=== PATIENT | male | born 1990 ===

== ENCOUNTER 2018-08-10 19:55 | Emergency (ER) | payer SELFPAY ==
[2018-08-10] MEDS ORDERED: Sodium Chloride 0.9% 10 ML Syringe FLUSH PRN (20:13)
[2018-08-10] MEDS ORDERED: Sodium Chloride 0.9% 2.5 ML Syringe FLUSH PRN (20:13)
[2018-08-10] MEDS ORDERED: methylPREDNISolone Sodium Succinate 125 MG/2 ML SDV IVPUSH ONE (20:13)
[2018-08-10] MEDS ORDERED: Sodium Chloride 0.9% 1,000 ML IV ONE (20:13)
[2018-08-10] MEDS ORDERED: Albuterol/Ipratropium 3.0-0.5 MG/3 ML Neb Soln NEB ONE ×2 (20:13→21:23)
[2018-08-10] MEDS ORDERED: Ketorolac 30 MG/ML SDV IVPUSH ONE (20:13)
--- NOTE | 2018-08-10 20:17 | EDM.PDOC ---
ED HPI GENERAL MEDICAL PROBLEM - General Chief Complaint: Respiratory Problem Stated Complaint: CHEST PAINS Time Seen by Provider: 08/10/18 20:09 - History of Present Illness INITIAL COMMENTS - FREE TEXT/NARRATIVE: HISTORY AND PHYSICAL: History of present illness: The patient is a 27-year-old male with no significant pulmonary or cardiac disease and no ill contacts who presents with 2 days of cough and congestion and feeling like there is phlegm that he cannot get out along with wheezing and feeling short of breath and fevers up to 101 last evening. He has been taking Motrin 400 mg for his fever and he has been feeling hot and cold on and off as well as having a sore throat, only when he is coughing. He is pushing hydration and not having abdominal pain vomiting but he has had some diarrhea. The patient did not get his flu shot but does work outdoors and has no history of seasonal allergies. Review of systems: As per history of present illness and below otherwise all systems reviewed and negative. Past medical history: As per history of present illness and as reviewed below otherwise noncontributory. Surgical history: As per history of present illness and as reviewed below otherwise noncontributory. Social history: No reported history of drug or alcohol abuse. Family history: As per history of present illness and as reviewed below otherwise noncontributory. Physical exam: General: Well-developed well-nourished overweight man who is nontoxic and speaking clearly without breathlessness but seems a little anxious. He does have a loose spastic cough on my evaluation HEENT: Atraumatic, normocephalic, pupils reactive, negative for conjunctival pallor or scleral icterus, mucous membranes moist, throat clear of exudates but there is some erythema, there is no cervical adenopathy or nuchal rigidity, neck supple, nontender, trachea midline. Lungs: Inspiratory and expiratory wheezing throughout all lung [place] with reasonably good air exchange and only diminished at the bases breath sounds equal bilaterally, chest nontender. Heart: S1S2, regular rhythm and slightly tachycardic on my evaluation but no overt murmurs Abdomen: Soft, nondistended, nontender. Hypoactive bowel sounds Negative for costovertebral tenderness. Pelvis: Deferred Genitourinary: Deferred. Rectal: Deferred. Extremities: Atraumatic Neurovascular unremarkable. No pedal edema Neuro: Awake, alert, oriented. Cranial nerves II through XII unremarkable. Cerebellum unremarkable. Motor and sensory unremarkable throughout. Exam nonfocal. Diagnostics: CBC CMP lactic acid influenza chest x-ray Therapeutics: IV fluids duo neb Solu-Medrol Toradol 2119: Reevaluation the patient is moving air well but is still wheezing and having coarse breath sounds. We are currently awaiting his chest x-ray or disposition. 2215: Reevaluation the patient says he is feeling much better and still coughing though but he is still having rhonchi and wheezing bilaterally but much improved from initial presentation. As he was not hypoxic on arrival and he is improving I have discussed with him his x-ray and lab findings and have offered him disposition home or observation admission. At this point she does not want to be admitted to the hospital and would like a trial of outpatient care. I will give him a spacer a Ventolin inhaler prednisone a Z-Eyad and some cough medication to take for sleep. He is aware of my concerns and will return if there is no improvement Impression: Acute bronchitis with bronchospasm Definitive disposition and diagnosis as appropriate pending reevaluation and review of above. chest/lungs Pain Score (Numeric/FACES): 7 - Related Data Allergies Allergy/AdvReac Type Severity Reaction Status Date / Time sulfamethoxazole Allergy Rash Verified 08/10/18 20:04 [From Bactrim] trimethoprim [From Bactrim] Allergy Rash Verified 08/10/18 20:04 Home Meds: Home Meds . [No Known Home Meds] 08/10/18 [History] Past Medical History - Past Health History Medical/Surgical History: Denies Medical/Surgical History Social & Family History - Family History Oncologic: Reports: Leukemia - Tobacco Use Smoking Status *Q: Heavy Tobacco Smoker Years of Tobacco use: 6 Packs/Tins Daily: 0.5 - Recreational Drug Use Recreational Drug Use: No ED ROS GENERAL - Review of Systems Review Of Systems: ROS reveals no pertinent complaints other than HPI. ED EXAM, GENERAL - Physical Exam Exam: See Below (See dictation) Course - Vital Signs Last Recorded V/S: Last Vital Signs Temp 37.1 C 08/10/18 20:02 Pulse 101 H 08/10/18 20:02 Resp 22 H 08/10/18 20:02 BP 142/75 H 08/10/18 20:02 Pulse Ox 94 L 08/10/18 20:02 - Orders/Labs/Meds Orders: Active Orders 24 hr Category Date Time Status Communication Order [RC] STAT Care 08/10/18 22:19 Ordered Oxygen Therapy, ED [RC] ASDIRECTED Care 08/10/18 20:13 Active RT Aerosol Therapy [RC] ASDIRECTED Care 08/10/18 20:14 Active RT Aerosol Therapy [RC] ASDIRECTED Care 08/10/18 21:23 Active Sodium Chloride 0.9% [Saline Flush] Med 08/10/18 20:13 Active 10 ml FLUSH ASDIRECTED PRN Sodium Chloride 0.9% [Saline Flush] Med 08/10/18 20:13 Active 2.5 ml FLUSH ASDIRECTED PRN Saline Lock Insert [OM.PC] Stat Oth 08/10/18 20:13 Ordered Medication Orders Sodium Chloride (Saline Flush) 10 ml FLUSH ASDIRECTED PRN PRN Reason: Keep Vein Open Sodium Chloride (Saline Flush) 2.5 ml FLUSH ASDIRECTED PRN PRN Reason: Keep Vein Open Labs: Laboratory Tests 08/10/18 08/10/18 08/10/18 Range/Units 20:20 20:20 20:20 WBC 13.30 H (4.0-11.0) K/uL RBC 5.07 (4.50-5.90) M/uL Hgb 16.0 (13.0-17.0) g/dL Hct 45.5 (38.0-50.0) % MCV 89.7 (80.0-98.0) fL MCH 31.6 (27.0-32.0) pg MCHC 35.2 (31.0-37.0) g/dL RDW Std Deviation 42.2 (28.0-62.0) fl RDW Coeff of [place] 13 (11.0-15.0) % Plt Count 147 L (150-400) K/uL MPV 12.30 H (7.40-12.00) fL Neut % (Auto) 71.2 (48.0-80.0) % Lymph % (Auto) 17.9 (16.0-40.0) % Robertson % (Auto) 5.7 (0.0-15.0) % Eos % (Auto) 5.0 (0.0-7.0) % Baso % (Auto) 0.2 (0.0-1.5) % Neut # (Auto) 9.5 H (1.4-5.7) K/uL Lymph # (Auto) 2.4 (0.6-2.4) K/uL Robertson # (Auto) 0.8 (0.0-0.8) K/uL Eos # (Auto) 0.7 (0.0-0.7) K/uL Baso # (Auto) 0.0 (0.0-0.1) K/uL Nucleated RBC % 0.0 /100WBC Nucleated RBCs # 0 K/uL Lactate 1.1 (0.20-2.00) mmol/L Sodium 138 (136-148) mmol/L Potassium 4.1 (3.5-5.1) mmol/L Chloride 104 (98-107) mmol/L Carbon Dioxide 24.1 (21.0-32.0) mmol/L BUN 19 H (7.0-18.0) mg/dL Creatinine 1.2 (0.8-1.3) mg/dL Est Cr Clr Drug Dosing 87.98 mL/min Estimated GFR (MDRD) > 60.0 ml/min Glucose 88 (74-106) mg/dL Calcium 9.0 (8.5-10.1) mg/dL Total Bilirubin 0.5 (0.2-1.0) mg/dL AST 19 (15-37) IU/L ALT 35 (14-63) IU/L Alkaline Phosphatase 102 (46-116) U/L Total Protein 7.3 (6.4-8.2) g/dL Albumin 3.9 (3.4-5.0) g/dL Globulin 3.4 (2.6-4.0) g/dL Albumin/Globulin Ratio 1.1 (0.9-1.6) Meds: Medications Generic Name Dose Route Start Last Admin Trade Name Freq PRN Reason Stop Dose Admin Sodium Chloride 10 ml 08/10/18 20:13 Saline Flush FLUSH ASDIRECTED PRN Keep Vein Open Sodium Chloride 2.5 ml 08/10/18 20:13 Saline Flush FLUSH ASDIRECTED PRN Keep Vein Open Discontinued Medications Generic Name Dose Route Start Last Admin Trade Name Freq PRN Reason Stop Dose Admin Albuterol/Ipratropium 3 ml 08/10/18 20:13 08/10/18 20:18 Duoneb 3.0-0.5 Mg/3 Ml NEB 08/10/18 20:14 3 ml ONETIME ONE Administration Albuterol/Ipratropium 3 ml 08/10/18 21:23 08/10/18 21:50 Duoneb 3.0-0.5 Mg/3 Ml NEB 08/10/18 21:24 3 ml ONETIME ONE Administration Sodium Chloride 1,000 mls @ 999 mls/hr 08/10/18 20:13 08/10/18 20:28 Normal Saline IV 08/10/18 21:13 999 mls/hr STAT ONE Administration Ketorolac Tromethamine 30 mg 08/10/18 20:13 08/10/18 20:28 Toradol IVPUSH 08/10/18 20:14 30 mg ONETIME ONE Administration Methylprednisolone Sodium Succinate 125 mg 08/10/18 20:13 08/10/18 20:28 Solu-Medrol IVPUSH 08/10/18 20:14 125 mg ONETIME ONE Administration Departure - Departure Time of Disposition: 22:20 Disposition: Home, Self-Care 01 Condition: Good Clinical Impression: Acute bronchitis with bronchospasm - Discharge Information Referrals: PCP,None [Primary Care Provider] - Forms: ED Department Discharge Additional Instructions: The following information is given to patients seen in the emergency department who are being discharged to home. This information is to outline your options for follow-up care. We provide all patients seen in our emergency department with a follow-up referral. The need for follow-up, as well as the timing and circumstances, are variable depending upon the specifics of your emergency department visit. If you don't have a primary care physician on staff, we will provide you with a referral. We always advise you to contact your personal physician following an emergency department visit to inform them of the circumstance of the visit and for follow-up with them and/or the need for any referrals to a consulting specialist. The emergency department will also refer you to a specialist when appropriate. This referral assures that you have the opportunity for followup care with a specialist. All of these measure are taken in an effort to provide you with optimal care, which includes your followup. Under all circumstances we always encourage you to contact your private physician who remains a resource for coordinating your care. When calling for followup care, please make the office aware that this follow-up is from your recent emergency room visit. If for any reason you are refused follow-up, please contact the [facility] emergency department at and ask to speak to the emergency department charge nurse. [facility] Primary care- Internal Medicine and Family [address] [address] Please push hydration and use all medications as prescribed. He'll be given a spacer to use with your Ventolin inhaler, you've been given prednisone cough medicine and a Z-Eyad from [employer]. Please rest and call and schedule a follow -up appointment with your provider or one of ours in the next few days for reevaluation and further care. Return to ER as needed and as discussed - My Orders Last 24 Hours: My Active Orders 08/10/18 20:13 Oxygen Therapy, ED [RC] ASDIRECTED Sodium Chloride 0.9% [Saline Flush] 10 ml FLUSH ASDIRECTED PRN Sodium Chloride 0.9% [Saline Flush] 2.5 ml FLUSH ASDIRECTED PRN Saline Lock Insert [OM.PC] Stat 08/10/18 20:14 RT Aerosol Therapy [RC] ASDIRECTED 08/10/18 21:23 RT Aerosol Therapy [RC] ASDIRECTED 08/10/18 22:19 Communication Order [RC] STAT - Assessment/Plan Last 24 Hours: My Active Orders 08/10/18 20:13 Oxygen Therapy, ED [RC] ASDIRECTED Sodium Chloride 0.9% [Saline Flush] 10 ml FLUSH ASDIRECTED PRN Sodium Chloride 0.9% [Saline Flush] 2.5 ml FLUSH ASDIRECTED PRN Saline Lock Insert [OM.PC] Stat 08/10/18 20:14 RT Aerosol Therapy [RC] ASDIRECTED 08/10/18 21:23 RT Aerosol Therapy [RC] ASDIRECTED 08/10/18 22:19 Communication Order [RC] STAT
[2018-08-10 20:53] LABS: CHLORIDE,CL 104 mmol/L (98-107); SODIUM,NA 138 mmol/L (136-148)
--- NOTE | 2018-08-10 22:05 | CR ---
INDICATION: cough, vomiting, diahrrea TECHNIQUE: Chest 2 views. COMPARISON: None. FINDINGS: Cardiovascular and mediastinum: Heart size and vasculature are normal in caliber and appearance. Mediastinum is within normal limits. Lungs and pleural spaces: Lungs are clear. No sign of infiltrate or mass. No sign of pleural effusion. No pneumothorax. Bones and soft tissues: No significant findings. IMPRESSION: Unremarkable chest. Dictated by: Joseph Viveros MD @ 08/10/2018 22:03:35 (Electronically Signed)
== END 2018-08-10 22:30 | disposition home or self-care (01) ==
LOC: MW.ED 19:55
DX: J20.9 Acute bronchitis, unspecified (principal); F17.210 Nicotine dependence, cigarettes, uncomplicated; Z88.2 Allergy status to sulfonamides; Z88.1 Allergy status to other antibiotic agents
CPT/HCPCS: 36415; 71046; 80053; 83605; 85025; 87804; 94640; 96361; 96374; 96375; 99285; J1885; J2930; J7040; 99284; J7620-GY